=== PATIENT | female | born 1995 | race Caucasian/White ===

== ENCOUNTER 2020-02-17 11:43 | Emergency (ER) | payer OTHER, SELFPAY ==
--- NOTE | ~2020-02-17 | CT_ITS ---
EXAMINATION: CT abdomen pelvis w con EXAM DATE: 02/17/2020 12:56 INDICATION: RLQ pain TECHNIQUE: Spiral CT of the abdomen and pelvis was performed following intravenous injection of 100 m L Omnipaque 350. Axial, coronal and sagittal images were reviewed. The dose-length product (DLP) fo r this examination was 1606.25 mGy-cm. The exposure was tailored according to patient size (auto mA exposure control), and iterative reconstruction (ASIR) was used as additional dose reduction techniqu e. There is no prior study for comparison. FINDINGS: The liver, spleen, adrenal glands and pancreas are unremarkable. There are cholecystectomy clips. Portal and splenic veins are patent. Kidneys enhance symmetrically. There is no hydronephr osis. The uterus and ovaries are unremarkable, no adnexal mass. The bladder is unremarkable. Ther e is no retroperitoneal or pelvic lymphadenopathy. The appendix is normal. The stomach and small bowel are unremarkable. There is expected amount of c olonic stool. No free intraperitoneal gas. The heart is normal in size. There are no pericardial or pleural effusions. The lung bases are unremarkable. The bones are unremarkable. IMPRESSION: 1. No acute intra-abdominal findings. Reviewed, dictated and finalized at location B. ROOM ATTENDANT
[2020-02-17 12:06] LABS: Add Urine Microscopic? YES; Appearance Urine Clear (Clear); Bilirubin Urine Negative (Negative); Blood Urine 3+ (Negative); Color Urine Yellow (Yellow); Glucose Urine UA Negative (Negative); Ketones Urine Negative (Negative); Leukocyte Esterase Ur Negative LEU/UL (Negative); Mucus Urine Rare /lpf; Nitrate Urine Negative (Negative); Protein Urine 2+ mg/dL (Negative); Specific Grav Ur 1.029 (1.001-1.035); Squamous Epithelial Cell Urine Moderate /hpf (Few); Urobilinogen Urine Negative mg/dL (<2.0); WBC Urine 0-3 /hpf
[2020-02-17 12:08] VITALS: BP 127/76; PULSE 69; RESP 18; TEMP 36.6; O2SAT 100
[2020-02-17 12:10] LABS: Basophils Absolute Auto 0.1 K/mm3 (0.0-0.1); Basophils Percent Auto 0.8 % (0.2-1.2); Eosinophils Absolute Auto 0.5 K/mm3 (0-0.3); Eosinophils Percent Auto 5.4 % (0-4.4); Hematocrit 37.8 % (37.0-47.0); Hemoglobin 12.1 g/dL (12.0-15.0); Immature Granulocyte Absolute 0.02 K/mm3 (0.00-0.031); Immature Granulocyte Percent A 0.2 % (0-0.5); Lymphocytes Absolute Auto 3.63 K/mm3 (0.9-3.2); Lymphocytes Percent Auto 39.3 % (18.3-44.2); Mean Corpuscular Hemoglobin 26.4 pg (26-34); Mean Corpuscular Volume 82.4 fl (80-100); Mean Platelet Volume 8.9 fl (7.4-10.4); Monocytes Absolute Auto 0.6 K/mm3 (0.1-0.6); Monocytes Percent Auto 6.8 % (2.6-8.5); Neutrophils Absolute Auto 4.4 K/mm3 (1.3-6.7); Neutrophils Percent Auto 47.5 % (45.5-73.1); Platelet Count Result 346 k/mm3 (150-375); Red Blood Count 4.59 M/mm3 (4.2-5.4); Red Cell Distribution Width 15.9 % (11.5-14.5); White Blood Count 9.2 K/mm3 (4.5-10.0)
[2020-02-17 12:23] LABS: Alanine Aminotransferase 35 U/L (4-35); Albumin Level 4.1 g/dL (3.5-5.1); Alkaline Phosphatase 94 U/L (38-126); Anion Gap 7 mmol/L (8-16); Aspartate Amino Transferase 33 U/L (14-36); Bilirubin,Total 0.4 mg/dL (0.2-1.3); Blood Urea Nitrogen 11 mg/dL (7-17); Calcium 9.1 mg/dL (8.4-10.2); Carbon Dioxide 26 mmol/L (22-30); Chloride 106 mmol/L (98-107); Estimated CRCL calculation 146 ml/min; Estimated Glomerular Filt Rate > 60; Glucose 101 mg/dL (65-105); Lipase 62 U/L (23-300); Potassium 4.1 mmol/L (3.4-5.0); Sodium 139 mmol/L (137-145)
--- NOTE | 2020-02-17 12:54 | PC.NURSE ---
PT IN CT, SPOKE WITH PROVIDER AT THIS TIME ABOUT ORDER FOR TORADOL BECAUSE SHE HAD STATED THAT SHE IS CONCERNED FOR A KIDNEY STONE. VERBAL ORDER PER PROVIDER TO HOLD TORADOL.
--- NOTE | 2020-02-17 12:57 | PC.NURSE ---
PT UNABLE TO GIVE UA FOR PREG TEST AT THIS TIME. REFUSING CATH.
[2020-02-17] MEDS: HYDROmorphone HCL INJ (*CRX) 1 MG/ML SYR 0.5 MG IV PUSH (13:04)
--- NOTE | 2020-02-17 13:17 | ED.ABDPAIN ---
HPI - Abdominal Pain General Chief Complaint: Abdominal Pain Stated Complaint: abdominal pain Time Seen by Provider: 02/17/20 11:51 Source: patient Mode of arrival: ambulatory Limitations: no limitations History of Present Illness HPI narrative: Patient presents with chief complaint of right middle abdomen pain that radiates to her right lower quadrant that has been intermittent over the past 2 days but became stronger this morning and caused her to double over in pain and has 2 episodes of vomiting. Patient states that she has had ovarian cyst in the past but the pain at that time was lower and different than the present pain that she is experiencing. Patient states she has had her gallbladder removed. Patient states that she has taken Tylenol and ibuprofen at home which helped until her symptoms this morning so she presented to emergency department as she was concerned something more complicated may be occurring. Patient denies fever, chills, diarrhea, vaginal bleeding or discharge or any concern for STDs or pelvic pain. Patient denies a history of previous kidney stones. Patient is currently on her menstrual cycle. Related Data Home Medications Medication Instructions Recorded Confirmed buspirone mg 02/17/20 cetirizine [Zyrtec] 10 mg PO DAILY 02/17/20 desvenlafaxine 02/17/20 Allergies Allergy/AdvReac Type Severity Reaction Status Date / Time amoxicillin Allergy Intermediate Hives Verified 02/17/20 12:15 clavulanic acid Allergy Intermediate Hives Verified 02/17/20 12:15 Penicillins Allergy Unknown Hives Verified 02/17/20 12:15 AMOXICILLIN TRIHYDRATE Allergy Severe SEVERE RASH Uncoded 11/29/18 19:48 Review of Systems Review of Systems: Narrative: CONSTITUTIONAL: Denies fever, chills, or sweats. EYES: Denies visual changes, redness, or discharge. ENT: Denies rhinorrhea, congestion, sore throat, or otalgia. CARDIOVASCULAR: Denies chest pain, palpitations, or edema. RESPIRATORY: Denies cough or dyspnea. GASTROINTESTINAL: Reports Right mid radiating lower quadrant abdominal pain, nausea, 1-2 episodes of vomiting Denies diarrhea. GENITOURINARY: Denies dysuria or hematuria. SKIN: Denies rash or itching. MUSCULOSKELETAL: Denies back pain, myalgia, or joint pain NEUROLOGIC: Denies headache, numbness, dizziness, or weakness. PSYCHIATRIC: Denies anxiety or depression. [facility] [place] Social History Social History Gender identity (if verbalized by the patient): Female Exam Narrative: Exam Narrative: GENERAL: Well-appearing, well-nourished.Obese. HEAD: Normocephalic, atraumatic. EYES: PERRLA and EOMI. ENT: Nares clear, no rhinorrhea or epistaxis. Mucous membranes moist. Oropharynx without tonsillar hypertrophy exudate or other lesions. Bilateral TMs pearly grady nonbulging NECK: Supple. No adenopathy or masses. No vertebral tenderness or loss of ROM. CHEST: Clear to auscultation. No respiratory distress. No wheezes rales or rhonchi HEART: Regular rate and rhythm. Normal peripheral pulses. ABDOMEN: Soft, tender to palpation mid and lower right abdomen, nondistended, obese, not tender to palpation over ovaries. No mcburney point tenderness. normal active bowel sounds. No bruises noted. EXTREMITIES: No acute changes in ROM. No edema. SKIN: Warm, dry, no rash. NEURO: No focal deficits. Alert and oriented x3. PSYCH: Normal mood and affect. Course Vital Signs Vital signs: Vital Signs Temperature 97.8 F 02/17/20 12:08 Pulse Rate 69 02/17/20 12:08 Respiratory Rate 18 02/17/20 12:08 Blood Pressure 127/76 02/17/20 12:08 Pulse Oximetry 100 02/17/20 12:08 Temperature 97.8 F 02/17/20 12:08 Pulse Rate 69 02/17/20 12:08 Respiratory Rate 18 02/17/20 12:08 Blood Pressure 127/76 02/17/20 12:08 Pulse Oximetry 100 02/17/20 12:08 MDM - Abdominal Pain MDM Narrative Medical decision making narrative: Patient declines vaginal symptoms or need for pelvic exam. CT performed to rule out emergent e
[2020-02-17 13:56] VITALS: BP 133/98; PULSE 60; RESP 16; O2SAT 98
== END 2020-02-17 13:57 | disposition home or self-care (01) ==
PROVIDERS: Emergency Provider Emergency Medicine; PCP Nurse Practitioner Family
DX: R10.9 Unspecified abdominal pain (principal)
CPT/HCPCS: 36415; 74177; 80053; 81001; 83690; 85025; 96374; 99284; J1170; Q9967

== ENCOUNTER 2020-03-14 12:50 | Outpatient (CLI) | payer OTHER, SELFPAY ==
--- NOTE | ~2020-03-14 | US_ITS ---
EXAMINATION: US pelvic complete w TV DATE: 03/14/2020 13:36 INDICATION: Pelvic pain TECHNIQUE: Multiple transabdominal and endovaginal sonographic images of the pelvis were obtained. COMPARISON: None. FINDINGS: The uterus measures 7.6 x 5.0 x 3.6 cm. The endometrial complex measures 10 mm in thickness. The rig ht ovary measures 2.6 x 2.2 x 2.0 cm. The left ovary measures 2.3 x 1.7 x 1.7 cm. Vascular flow ident ified in both ovaries on color Doppler. There is no free fluid in the pelvis. IMPRESSION: 1. Normal pelvic ultrasound. Reviewed, dictated and finalized at location B. R
== END 2020-03-14 12:51 | disposition home or self-care (01) ==
PROVIDERS: PCP Nurse Practitioner Family; Visit Provider Physician Assistant
DX: R10.2 Pelvic and perineal pain (principal)
CPT/HCPCS: 76830; 76856

== ENCOUNTER 2021-02-23 15:16 | Emergency (ER) | payer OTHER, SELFPAY ==
--- NOTE | 2021-02-23 15:22 | ED.URI ---
HPI - URI/Sore Throat General Chief Complaint: Upper Respiratory Infection Stated Complaint: Cough, congestion. Time Seen by Provider: 02/23/21 15:22 Source: patient and RN notes reviewed History of Present Illness HPI Narrative: Patient is a 25-year-old female who presents the urgent care with complaints of body aches, runny nose, cough and fever that started this morning. Patient is vaccinated for COVID and denies of any recent known exposures however she does work in a doctor's office. Patient states that she has been taking Tylenol and Mucinex for her symptoms. Denies any nausea or vomiting. No other acute complaints. No acute distress noted. Patient read the plan of care. Some parts of this dictation were generated by voice recognition software and may contain typographical and/or grammatical inaccuracies. Related Data Home Medications Medication Instructions Recorded Confirmed dextroamphetamine-amphetamine 20 mg PO DAILY 02/23/21 02/23/21 Allergies Allergy/AdvReac Type Severity Reaction Status Date / Time amoxicillin Allergy Intermediate Hives Verified 02/23/21 15:23 clavulanic acid Allergy Intermediate Hives Verified 02/23/21 15:23 Penicillins Allergy Unknown Hives Verified 02/23/21 15:23 AMOXICILLIN TRIHYDRATE Allergy Severe SEVERE RASH Uncoded 02/23/21 15:23 Review of Systems Review of Systems: CONSTITUTIONAL: Reports a fever and chills EYES: Denies visual changes, redness, or discharge. ENT: Reports of sinus congestion and rhinorrhea CARDIOVASCULAR: Denies chest pain, palpitations, or edema. RESPIRATORY: Reports of cough dyspnea GASTROINTESTINAL: Denies abdominal pain, nausea, vomiting, or diarrhea. GENITOURINARY: Denies dysuria or hematuria. SKIN: Denies rash or itching. MUSCULOSKELETAL: Denies back pain, joint pain. Reports of body aches NEUROLOGIC: Denies headache, numbness, or weakness. All other systems reviewed are negative, except as documented in HPI. PMFSH Social History Social History Gender identity (if verbalized by the patient): Female Comments At the time of my signature, I reviewed and agree with the nursing past medical, surgical, social, and family history. There is no relevant family history pertinent to the patient complaint. Exam Narrative: GENERAL: This is a well-nourished, well-developed patient. Appears fatigued HEAD: normocephalic, atraumatic. Frontal sinus tenderness EYES: PERRL. Sclera clear/white. Vision is grossly intact. EARS: External ears normal, auditory canals clear and without drainage, TMs normal without perforation. Hearing grossly intact. NOSE: External nose normal with no obvious nasal discharge, nares without redness, clear to yellow rhinorrhea THROAT: Mucous membranes moist, posterior pharynx clear. Mild postnasal drainage NECK: Neck supple CARDIOVASCULAR: Regular rate and rhythm without murmurs, gallops, or rubs. RESPIRATORY: Clear to auscultation. Breath sounds equal bilaterally. No wheezes, rales, or rhonchi. GASTROINTESTINAL: Abdomen soft, non-tender, nondistended. Bowel sounds are active. No hepato-splenomegaly, or palpable masses. No guarding. SKIN: warm, intact with no suspicious lesions or rash, good texture and turgor. NEURO: awake, alert, and oriented to person, place and time. There were no obvious focal neurologic abnormalities. EXTREMITIES: No clubbing, cyanosis, or edema. Course Course Level of Care: Express Care Visit Vital Signs Vital signs: Vital Signs Temperature 101.1 F H 02/23/21 15:23 Pulse Rate 103 H 02/23/21 15:23 Respiratory Rate 16 02/23/21 15:23 Blood Pressure 120/74 02/23/21 15:23 Pulse Oximetry 99 02/23/21 15:23 Temperature 101.1 F H 02/23/21 15:23 Pulse Rate 103 H 02/23/21 15:23 Respiratory Rate 16 02/23/21 15:23 Blood Pressure 120/74 02/23/21 15:23 Pulse Oximetry 99 02/23/21 15:23 Reviewed MDM - URI/Sore Throat MDM Narrative Medical decision making narrative: Reviewed lab results with
[2021-02-23 15:23] VITALS: BP 120/74; PULSE 103; RESP 16; TEMP 38.4; O2SAT 99
== END 2021-02-23 15:50 | disposition home or self-care (01) ==
PROVIDERS: Emergency Provider Nurse Practitioner Family; PCP Physician Assistant
DX: Z20.822 Contact with and (suspected) exposure to COVID-19 (principal); J45.909 Unspecified asthma, uncomplicated; G47.419 Narcolepsy without cataplexy
CPT/HCPCS: 87804; 99213; G0463

== ENCOUNTER 2021-09-25 00:16 | Emergency (ER) | payer OTHER, SELFPAY ==
[2021-09-25 00:45] VITALS: BP 150/79; PULSE 81; RESP 20; TEMP 36.1; O2SAT 100
--- NOTE | 2021-09-25 03:00 | PC.NURSE ---
0255- When pt called to go back to room, pt was not in the waiting room.
== END 2021-09-25 04:14 | disposition left against medical advice (07) ==
LOC: ANHED 03:50
PROVIDERS: PCP Physician Assistant
DX: R06.02 Shortness of breath (principal)
CPT/HCPCS: 99199

== ENCOUNTER 2022-06-04 15:03 | Outpatient (RCR) | payer BC, SELFPAY ==
--- NOTE | 2022-05-23 08:59 | PCPTNOTE ---
Patient called & cancelled scheduled appointment this date due to having a sick child
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
--- NOTE | 2022-07-19 11:52 | PCPTNOTE ---
Admitting Provider: Attending Provider: Denise Lopez, PA Patient:Erin Davies Date of :1995 Patient has not returned for any further treatments since initial evaluation on 06/04/2022, therefore she will be discharged at this time. Patient?s initial visit was on 06/04/2022 15:15 and she had a total of ___1 visits. The goals have been not met. Thank you for referring this patient to [facility]. Please review, sign, date and return this discharge summary YANIRA. I have been updated about the patient's current status and I agree with discharge from the above service at this time. Referring Physician Date
== END 2022-07-23 13:36 | disposition home or self-care (01) ==
LOC: ANHPT 15:03
PROVIDERS: PCP Physician Assistant; Visit Provider Physician Assistant
DX: M54.2 Cervicalgia (principal)
CPT/HCPCS: 97110; 97140; 97161